=== PATIENT | female | born 1955 | race Caucasian/White ===

== ENCOUNTER 2020-07-16 08:50 | Outpatient (CLI) | payer OTHER, SELFPAY ==
--- NOTE | ~2020-07-16 | DEXA_ITS ---
Bone Density Report Name: Rose Nolan Age: 64 Sex: Female Ethnicity: White Date of : 1955 Indication: osteopenia; monitoring treatment; height loss; Referring Provider: Tri Osei Study: Bone densitometry was performed. Exam Date: July 16, 2020 Accession number: [id number] Bone Density: Region BMD T-score Z-score Classification AP Spine (L1-L4) 0.826 -2.0 -0.3 Osteopenia Femoral Neck (Left) 0.616 -2.1 -0.6 Osteopenia Total Hip (Left) 0.750 -1.6 -0.4 Osteopenia Total Hip Bilateral Avg 0.769 -1.5 -0.3 Osteopenia Femoral Neck (Right) 0.655 -1.7 -0.3 Osteopenia Total Hip (Right) 0.787 -1.3 -0.1 Osteopenia World Health Organization criteria for BMD impression classify patients as: Normal (T-score at or above -1.0), Osteopenia (T-score between -1.0 and -2.5), or Osteoporosis (T-score at or below -2.5). 10-year Fracture Risk: FRAX not reported because: Treated for osteoporosis Previous Exams: Region Exam Age BMD T-score BMD Change BMD Change Date g/cm2 vs Baseline vs Previous AP Spine(L1-L4) 07/16/2020 64 0.826 -2.0 0.003(0.3%)# -0.049(-5.6%)* 08/02/2015 59 0.875 -1.6 0.052(6.3%)# -0.027(-3.0%)# 06/11/2010 54 0.902 -1.3 0.079(9.6%)* 0.079(9.6%)* 04/04/2005 49 0.823 -2.0 Total Hip(Left) 07/16/2020 64 0.750 -1.6 0.038(5.3%)# -0.077(-9.3%)* 08/02/2015 59 0.827 -0.9 0.115(16.2%)# 0.064(8.4%)# 06/11/2010 54 0.763 -1.5 0.051(7.1%)* 0.051(7.1%)* 04/04/2005 49 0.712 -1.9 Total Hip(Right) 07/16/2020 64 0.787 -1.3 0.006(0.8%)# -0.085(-9.7%)* 08/02/2015 59 0.872 -0.6 0.091(11.7%)# 0.028(3.4%)# 06/11/2010 54 0.843 -0.8 0.063(8.0%)* 0.063(8.0%)* 04/04/2005 49 0.781 -1.3 *Denotes significance at 95% confidence level, LSC for AP Spine = 0.022 g/cm2, LSC for Total Hip = 0.027 g/cm2 Clinical Information Provided by Patient: Is being treated for osteoporosis Has used the following medications: Fosamax (i.e. alendronate), Vitamin D, Calcium Patient maximum height was 63.5 Menopause Age: 44 Onset of menses at age 13 Number of children 2 Impression: The patient has low bone mass, based on the Left Femoral Neck T-score. The BMD for the AP Spine(L1-L4) decreased, changing by -5.6% since the last DXA exam. The BMD for the Total Hip(Left) decreased, changing by -9.3% since the last DXA exam. The BMD for the Total Hip(Right) decreased, changing by -9.7% since the last DXA exam
--- NOTE | ~2020-07-16 | MM_ITS ---
EXAMINATION: MM screening [facility] BI w sulma HISTORY: Screening TECHNIQUE: Craniocaudal and mediolateral oblique 3-D tomosynthesis images were obtained and synthetic 2-D images were generated. CAD analysis was submitted and interpreted. COMPARISON: Comparison to multiple prior studies sequentially, with oldest reviewed study dated 12/15. BREAST PARENCHYMAL COMPOSITION: The breasts are heterogeneously dense, which may obscure small masses . FINDINGS: There is no evidence of suspicious mass, calcification, or architectural distortion to sugg est malignancy in either breast. There has been no suspicious interval change. IMPRESSION: 1. No mammographic evidence of malignancy. 2. Recommend routine screening mammography in one year. BI-RADS Category 1: Negative Reviewed, dictated and finalized at location A.
== END 2020-07-16 08:51 | disposition home or self-care (01) ==
LOC: ANHIMG 08:51
PROVIDERS: PCP Family Medicine; Visit Provider Family Medicine
DX: Z12.31 Encounter for screening mammogram for malignant neoplasm of breast (principal); M85.88 Other specified disorders of bone density and structure, other site; M85.852 Other specified disorders of bone density and structure, left thigh; M85.851 Other specified disorders of bone density and structure, right thigh
CPT/HCPCS: 77063; 77067; 77080

== ENCOUNTER 2021-05-03 10:53 | Outpatient (CLI) | payer MEDICARE, SELFPAY ==
--- NOTE | ~2021-05-03 | XR_ITS ---
XR hip RT min 2V 05/03/2021 11:09 Indication: Right hip pain Procedure: 2 views right hip Comparison: No prior studies for comparison. Findings: No fracture, subluxation or dislocation. There is anatomic alignment. Surrounding osseous s tructures and soft tissues are unremarkable. Impression: 1: No significant bone or joint abnormality. Reviewed, dictated and finalized at location A. Impression: 1: No significant bone or joint abnormality.
== END 2021-05-03 10:54 | disposition home or self-care (01) ==
PROVIDERS: PCP Family Medicine; Visit Provider Family Medicine
DX: M25.551 Pain in right hip (principal)
CPT/HCPCS: 73502

== ENCOUNTER → 2021-11-12 09:29 | Outpatient (CLI) | payer MEDICARE, SELFPAY ==
[2021-11-13 13:33] LABS: SARS-CoV-2 RNA PCR Negative
== END ==
PROVIDERS: PCP Family Medicine; Visit Provider Physician Assistant
DX: J02.9 Acute pharyngitis, unspecified (principal); R09.81 Nasal congestion; R53.83 Other fatigue; Z20.822 Contact with and (suspected) exposure to COVID-19
CPT/HCPCS: C9803; U0003; U0005

== ENCOUNTER 2022-04-09 09:01 | Outpatient (CLI) | payer MEDICARE, SELFPAY ==
--- NOTE | ~2022-04-09 | MM_ITS ---
EXAMINATION: MM screening [facility] BI w sulma HISTORY: Screening mammogram TECHNIQUE: Craniocaudal and mediolateral oblique 3-D tomosynthesis images were obtained and synthetic 2-D images were generated. CAD analysis was submitted and interpreted. COMPARISON: 07/16/2020, 10/05/2018, 03/12/2017 bilateral screening mammogram examinations BREAST PARENCHYMAL COMPOSITION: The breasts are heterogeneously dense, which may obscure small masses . FINDINGS: Bilateral mid to upper outer mammographic asymmetry is noted. Bilateral diagnostic mammogra phy and breast ultrasound examination are recommended. IMPRESSION: 1. Bilateral mammographic asymmetry 2. Bilateral diagnostic mammography and breast ultrasound examination are recommended BI-RADS Category 0: Incomplete: Needs additional imaging evaluation. Reviewed, dictated and finalized at location A. IMPRESSION: 1. Bilateral mammographic asymmetry 2. Bilateral diagnostic mammography and breast ultrasound examination are recom mended BI-RADS Category 0: Incomplete: Needs additional imaging evaluation.
== END 2022-04-09 09:02 | disposition home or self-care (01) ==
LOC: ANHIMG 09:04
PROVIDERS: PCP Family Medicine; Visit Provider Physician Assistant
DX: Z12.31 Encounter for screening mammogram for malignant neoplasm of breast (principal); R92.8 Other abnormal and inconclusive findings on diagnostic imaging of breast
CPT/HCPCS: 77063; 77067

== ENCOUNTER 2022-04-11 12:21 | Outpatient (CLI) | payer MEDICARE, SELFPAY ==
--- NOTE | ~2022-04-11 | MMUS_ITS ---
EXAMINATION: MM diagnostic iman BI w sulma, US breast BI limited HISTORY: Bilateral mid to upper outer mammographic asymmetry noted in both breasts on 04/09/2022 [facility]ogram TECHNIQUE: Additional 3-D tomosynthesis images of both breasts were performed and synthetic 2-D image s were generated. CAD analysis was submitted and interpreted. High resolution bilateral upper outer a nd lower outer quadrant breast ultrasound was performed. COMPARISON: 04/09/2022, 07/16/2020, 10/13/2018 bilateral screening mammogram examinations BREAST PARENCHYMAL COMPOSITION: The breasts are heterogeneously dense, which may obscure small masses . FINDINGS: MAMMOGRAPHIC FINDINGS: No suspicious mass or architectural distortion, malignant calcification, skin thickening or retractio n or significant new or developing density is detected. ULTRASOUND: No suspicious mass or shadowing, cyst or other sonographic significant finding is noted in the outer half of either breast. IMPRESSION: 1. No mammographic evidence of malignancy 2. Routine mammographic screening is recommended. BI-RADS Category 1: Negative Reviewed, dictated and finalized at location A. IMPRESSION: 1. No mammographic evidence of malignancy 2. Routine mammographic screening is recommended. BI-RADS Category 1: Negative
== END 2022-04-11 12:22 | disposition home or self-care (01) ==
PROVIDERS: PCP Family Medicine; Visit Provider Physician Assistant
DX: R92.8 Other abnormal and inconclusive findings on diagnostic imaging of breast (principal)
CPT/HCPCS: 76642; 77062; 77066; G0279

== ENCOUNTER 2022-09-10 16:18 | Outpatient (CLI) | payer MEDICARE, SELFPAY ==
--- NOTE | ~2022-09-10 | DEXA_ITS ---
Bone Density Report Name: TI LANCE Age: 66 Sex: Female Ethnicity: White Date of : 1955 Indication: osteopenia; parental hip fracture; postmenopausal Referring Provider: RUBY MILLER Study: Bone densitometry was performed. Exam Date: September 10, 2022 Accession number: [id number] Bone Density: Region BMD T-score Z-score Classification AP Spine(L1-L4) 0.806 -2.2 -0.3 Osteopenia Femoral Neck (Left) 0.646 -1.8 -0.2 Osteopenia Total Hip (Left) 0.765 -1.5 -0.1 Osteopenia Femoral Neck (Right) 0.667 -1.6 0.0 Osteopenia Total Hip (Right) 0.775 -1.4 0.0 Osteopenia Total Hip Mean 0.770 -1.5 -0.1 Osteopenia World Health Organization criteria for BMD impression classify patients as: Normal (T-score at or above -1.0), Osteopenia (T-score between -1.0 and -2.5), or Osteoporosis (T-score at or below -2.5). 10-year Fracture Risk(1): Major Osteoporotic Fracture 18% Hip Fracture 2.1% Reported Risk Factors: [place] (), Neck BMD=0.646, BMI=26.4, parental fracture (1) FRAX(R) Version 3.08. Fracture probability calculated for an untreated patient. Fracture probability may be lower if the patient has received treatment. Previous Exams: Region Exam Age BMD T-score BMD Change BMD Change Date g/cm2 vs Baseline vs Previous AP Spine (L1-L4) 09/10/2022 66 0.806 -2.2 -0.069 (-7.9%) -0.020 (-2.4%) 07/16/2020 64 0.826 -2.0 -0.049 (-5.6%) -0.049 (-5.6%) 08/02/2015 59 0.875 -1.6 Total Hip(Left) 09/10/2022 66 0.765 -1.5 -0.062 (-7.5%) 0.015 (1.9%) 07/16/2020 64 0.750 -1.6 -0.077 (-9.3%) -0.077 (-9.3%) 08/02/2015 59 0.827 -0.9 Total Hip(Right) 09/10/2022 66 0.775 -1.4 -0.097 (-11.1% -0.012 (-1.5%) 07/16/2020 64 0.787 -1.3 -0.085 (-9.7%) -0.085 (-9.7%) 08/02/2015 59 0.872 -0.6 *Denotes significance at 95% confidence level, LSC for AP Spine = 0.022 g/cm2, LSC for Total Hip = 0.027 g/cm2 Clinical Information Provided by Patient: Parent has had a hip fracture Has used the following medications: Vitamin D, Calcium Patient maximum height was 63 Menopause Age: 44 Onset of menses at age 13 Number of children 2 Impression: The patient has low bone mass, based on the Total Spine T-score. The patient has an estimated ten-year risk of hip fracture of 2.1% and an estimated ten-year risk of major fracture of 18%, based on the WHO FRAX algorithm. The patient has risk factors, including: p
== END 2022-09-10 16:19 | disposition home or self-care (01) ==
PROVIDERS: PCP Family Medicine; Visit Provider Physician Assistant
DX: Z78.0 Asymptomatic menopausal state (principal); M85.88 Other specified disorders of bone density and structure, other site; M85.852 Other specified disorders of bone density and structure, left thigh; M85.851 Other specified disorders of bone density and structure, right thigh
CPT/HCPCS: 77080

== ENCOUNTER 2023-03-23 13:37 | Outpatient (CLI) | payer MEDICARE, SELFPAY ==
--- NOTE | ~2023-03-23 | XR_ITS ---
EXAM: XR hand LT min 3V DATE: 03/23/2023 14:04 HISTORY: PAIN AND BUMP TO PROX 4TH METACARPAL AFTER FALL 1 MONTH AGO . COMPARISON: None available. FINDINGS: Decreased mineralization. Acute versus subacute comminuted, mildly displaced fracture of t he proximal aspect of the fourth metacarpal. Oblique lucency seen at the mid/distal fifth metacarpal shaft, seen only in one view. No other fracture or dislocation. No lytic or blastic lesion. Mild dege nerative changes in the interphalangeal joints of the fingers as well as the triscaphe joint. Moderat e degenerative change in the trapeziometacarpal joint and the interphalangeal joint of the thumb, whe re there is a osseous fragment that may represent an old fracture fragment. No erosion or periosteal change. Soft tissues within normal limits. IMPRESSION: Acute versus subacute mildly displaced fracture of the proximal aspect of the fourth meta carpal. Possible nondisplaced fracture of the mid/distal fifth metacarpal shaft, correlate with point tenderness. Mild-moderate polyarticular osteoarthritis. Reviewed, dictated and finalized at location K. IMPRESSION: Acute versus subacute mildly displaced fracture of the proximal asp ect of the fourth metacarpal. Possible nondisplaced fracture of the mid/distal fifth metacarpal shaft, correlate with point tenderness. Mild-moderate polyarti cular osteoarthritis.
== END 2023-03-23 13:38 | disposition home or self-care (01) ==
PROVIDERS: PCP Family Medicine; Visit Provider Physician Assistant
DX: S62.395A Other fracture of fourth metacarpal bone, left hand, initial encounter for closed fracture (principal); X58.XXXA Exposure to other specified factors, initial encounter
CPT/HCPCS: 73130

== ENCOUNTER 2023-06-30 09:49 | Outpatient (CLI) | payer MEDICARE, SELFPAY ==
--- NOTE | ~2023-06-30 | MM_ITS ---
EXAMINATION: MM screening [facility] BI w sulma HISTORY: Screening TECHNIQUE: Craniocaudal and mediolateral oblique 3-D tomosynthesis images were obtained and synthetic 2-D images were generated. CAD analysis was submitted and interpreted. COMPARISON: Comparison to multiple prior studies sequentially, with oldest reviewed study dated 01/10 BREAST PARENCHYMAL COMPOSITION: The breasts are heterogeneously dense, which may obscure small masses . FINDINGS: There is no evidence of suspicious mass, calcification, or architectural distortion to sugg est malignancy in either breast. There has been no suspicious interval change. IMPRESSION: 1. No mammographic evidence of malignancy. 2. Recommend routine screening mammography in one year. BI-RADS Category 1: Negative Reviewed, dictated and finalized at location A.
== END 2023-06-30 09:50 | disposition home or self-care (01) ==
PROVIDERS: PCP Family Medicine; Visit Provider Physician Assistant
DX: Z12.31 Encounter for screening mammogram for malignant neoplasm of breast (principal)
CPT/HCPCS: 77063; 77067

== ENCOUNTER 2023-07-30 06:27 | Day surgery (SDC) | payer MEDICARE, SELFPAY ==
[2023-07-23 11:49] VITALS: BMI 23.9
--- NOTE | 2023-07-30 07:34 | WPDANESEPPF ---
Anes - Initial Pre Proc Eval Procedure: Operation Date: 07/30/23 09:30 Proposed Procedures p Diagnostic Colonoscopy - Tello Le MD Date/Time: 07/30/23 07:34 Surgeon: Tello Le MD Pre Op Diagnosis: Other Fecal Abnormalities Patient Data Age: 67 Gender: F Height: 1.6 m Weight: 61.4 kg Allergies Allergy/AdvReac Type Severity Reaction Status Date / Time No Known Allergies Allergy Verified 07/30/23 08:20 Home Medications Medication Instructions Recorded Confirmed Type calcium carbonate 600 mg-vitamin 1 tablet PO DAILY 12/19/20 07/30/23 History D3 20 mcg (800 unit) tablet (Caltrate with Vitamin D3) naproxen 500 mg tablet 500 mg PO BID PRN pain #60 tabs 02/10/22 07/30/23 Rx uvylgmsk-cmqtkzmju-ioaqjovw 3.5 1 drp EACH EYE Q6H #5 mL 04/17/22 07/30/23 Rx mg/mL-10,000 unit/mL-0.1% eye drops clobetasol 0.05 % topical cream 1 applic topical BID #15 grams 06/23/22 07/30/23 Rx estradiol 10 mcg vaginal tablet 10 mcg vaginal .COMPLEX #18 tabs 03/19/23 07/30/23 Rx (Yuvafem) atenolol 25 mg tablet 25 mg PO DAILY #90 tabs 05/11/23 07/30/23 Rx simvastatin 5 mg tablet 5 mg PO DAILY #90 tabs 06/23/23 07/30/23 Rx Patient hx anesthesia problems: none Family hx anesthesia problems: none Results Review: All pre-operative results and documents have been reviewed as part of the pre-operative evaluation. [facility] Past Medical History Medical History (Updated 07/30/23 @ 07:34 by Parrish Pat DO) Essential (primary) hypertension Hepatitis C antibody test negative (12/28/16) Mixed hyperlipidemia Surgical History Surgical History H/O section 1981 1988 H/O hemorrhoidectomy (~1986) Family History Family History Father Hypertension Family history of elevated blood lipids Acute myocardial infarction Family history of coronary artery disease Mother Hypertension Family history of elevated blood lipids Acute myocardial infarction Cerebrovascular accident Family history of coronary artery disease Sibling Family history of elevated blood lipids Social History Social History Smoking status: Never smoker Alcohol intake: current Drinks per week: 4 Alcohol use details: socially Substance use: never Substance use type: does not use Lack of Transportation: No Lack of Food: Never True Current Housing: I Have Housing Concerned About Future Housing: No Difficulty Paying Gas/Electric Bills: No Difficulty Paying for Meds: No Currently Unemployed: No Education: Bachelor's Degree Difficulty w/ Childcare or Family Care: No Living arrangements: with friend(s) Additional living arrangements comments: Boyfriend Occupation/Education: retired Gender identity (if verbalized by the patient): Female Sexual Orientation (if Verbalized by the Patient): Straight or Heterosexual Spiritual care concerns: No Agree to blood products: Yes Anes - Eval Final PreProcedure Day of Procedure 07/30/23 07:34 Patient weight: normal Heart: regular rate and rhythm Lungs: clear to auscultation and normal air movement Airway: Mallampati scale class II Neurological: alert and oriented Last oral intake: >/= 8 hours ASA classification: II Emergent: no Anesthetic plan: proceed Anesthesia type and monitoring: general GIVS and standard monitoring Results Review: All pre-operative results and documents have been reviewed as part of the pre-operative evaluation. Informed Consent: The patient's anesthetic plan and its attendant risks and benefits were discussed with the patient/family/POA. Questions were solicited and answers provided to the satisfaction of the patient/family/POA.
[2023-07-30 08:17] VITALS: BP 134/85; PULSE 52; RESP 14; TEMP 36.8; O2SAT 98
[2023-07-30] MEDS: LACTATED RINGERS 1,000 ML 150 ML IV CONT (08:28)
--- NOTE | 2023-07-30 08:50 | PM.HPGS ---
History of Present Illness History of Present Illness Consent: Risks, benefits, and alternatives have been discussed and questions answered. Patient agrees to proceed with procedure. Chief complaint: Other Fecal Abnormalities Narrative: Rose Nloan is a 67 year old female with last colonoscopy in 2006, had + cologuard Review of Systems Constitutional: Constitutional: Denies headache(s) and Denies weakness Eyes: Eyes: Denies blurry vision ENT: Reports Normal hearing present, Denies headache(s) and Denies neck pain Cardiovascular: Cardiovascular: Denies chest pain and Denies dyspnea Respiratory: Respiratory: Denies dyspnea Gastrointestinal: Gastrointestinal: Reports no additional gastrointestinal complaints Genitourinary: Genitourinary: Denies dysuria Musculoskeletal: Musculoskeletal: Denies neck pain Integumentary/Breasts: Skin/Breast: Denies dry skin Neurologic: Reports Normal hearing present, Denies headache(s) and Denies weakness Psychiatric: Psychiatric: Denies anxiety Endocrine: Endocrine: Denies change in body appearance Hematologic/Lymphatic: Hematologic/Lymphatic: Denies easy bleeding Allergic/Immunologic: Allergic/Immunologic: Denies urticaria PMFSH Past Medical History Medical History (Updated 07/30/23 @ 07:34 by Parrish Pat DO) Essential (primary) hypertension Hepatitis C antibody test negative (12/28/16) Mixed hyperlipidemia Surgical History Surgical History H/O section 1981 1988 H/O hemorrhoidectomy (~1986) Family History Family History Father Hypertension Family history of elevated blood lipids Acute myocardial infarction Family history of coronary artery disease Mother Hypertension Family history of elevated blood lipids Acute myocardial infarction Cerebrovascular accident Family history of coronary artery disease Sibling Family history of elevated blood lipids Social History Social History Smoking status: Never smoker Alcohol intake: current Drinks per week: 4 Alcohol use details: socially Substance use: never Substance use type: does not use Lack of Transportation: No Lack of Food: Never True Current Housing: I Have Housing Concerned About Future Housing: No Difficulty Paying Gas/Electric Bills: No Difficulty Paying for Meds: No Currently Unemployed: No Education: Bachelor's Degree Difficulty w/ Childcare or Family Care: No Living arrangements: with friend(s) Additional living arrangements comments: Boyfriend Occupation/Education: retired Gender identity (if verbalized by the patient): Female Sexual Orientation (if Verbalized by the Patient): Straight or Heterosexual Spiritual care concerns: No Agree to blood products: Yes Meds Home Medications and Allergies Home Medications Medication Instructions Recorded Confirmed Type calcium carbonate 600 mg-vitamin 1 tablet PO DAILY 12/19/20 07/30/23 History D3 20 mcg (800 unit) tablet (Caltrate with Vitamin D3) naproxen 500 mg tablet 500 mg PO BID PRN pain #60 tabs 02/10/22 07/30/23 Rx mnuuojpy-wknjxfvmt-hfkikrty 3.5 1 drp EACH EYE Q6H #5 mL 04/17/22 07/30/23 Rx mg/mL-10,000 unit/mL-0.1% eye drops clobetasol 0.05 % topical cream 1 applic topical BID #15 grams 06/23/22 07/30/23 Rx estradiol 10 mcg vaginal tablet 10 mcg vaginal .COMPLEX #18 tabs 03/19/23 07/30/23 Rx (Yuvafem) atenolol 25 mg tablet 25 mg PO DAILY #90 tabs 05/11/23 07/30/23 Rx simvastatin 5 mg tablet 5 mg PO DAILY #90 tabs 06/23/23 07/30/23 Rx Allergies Allergy/AdvReac Type Severity Reaction Status Date / Time No Known Allergies Allergy Verified 07/30/23 08:20 Vital Signs Vital Signs - 24 hr 07/30/23 08:17 Temperature 98.2 F Pulse Rate 52 L Respiratory Rate 14 Blood Pressure 134/8
[2023-07-30 09:23] VITALS: BP 100/61; PULSE 52; RESP 14; TEMP 36.2; O2SAT 96
[2023-07-30 09:33] VITALS: BP 100/77; PULSE 52; RESP 14; O2SAT 99
[2023-07-30 09:44] VITALS: BP 125/74; PULSE 50; RESP 16; O2SAT 98
== END 2023-07-30 09:50 | disposition home or self-care (01) ==
PROVIDERS: PCP Family Medicine; Visit Provider Internal Medicine Gastroenterology
PROC: 0DJD8ZZ Inspection of Lower Intestinal Tract, Via Natural or Artificial Opening Endoscopic (ICD-10-PCS; CPT 45378; principal; 2023-07-30 09:30)
DX: R19.5 Other fecal abnormalities (principal); D12.2 Benign neoplasm of ascending colon; D12.3 Benign neoplasm of transverse colon; K64.8 Other hemorrhoids
CPT/HCPCS: 45385; 45380

== ENCOUNTER 2023-07-30 09:00 | Outpatient (NON) | payer MEDICARE, SELFPAY | END 2023-07-30 09:01 | disposition home or self-care (01) | PROVIDERS: PCP Family Medicine; Visit Provider Internal Medicine Gastroenterology | DX: Z12.11 Encounter for screening for malignant neoplasm of colon (principal) | CPT/HCPCS: 88305 ==

== ENCOUNTER 2024-07-11 07:47 | Outpatient (CLI) | payer MEDICARE, SELFPAY ==
--- NOTE | ~2024-07-11 | MM_ITS ---
EXAMINATION: MM screening [facility] BI w sulma HISTORY: Screening TECHNIQUE: Craniocaudal and mediolateral oblique 3-D tomosynthesis images were obtained and synthetic 2-D images were generated. CAD analysis was submitted and interpreted. COMPARISON: Comparison to multiple prior studies sequentially, with oldest reviewed study dated 03/12. BREAST PARENCHYMAL COMPOSITION: Dense: The breasts are heterogeneously dense, which may obscure small masses FINDINGS: The left breast is stable without evidence for malignancy. There are asymmetries in the upp er outer quadrant of the right breast posteriorly. IMPRESSION: 1. Right breast asymmetries. 2. Additional mammographic views and possible breast ultrasound are recommended. BI-RADS Category 0: Incomplete: Needs additional imaging evaluation. Reviewed, dictated and finalized at location B. IMPRESSION: 1. Right breast asymmetries. 2. Additional mammographic views and possible breast ultrasound are recommended . BI-RADS Category 0: Incomplete: Needs additional imaging evaluation.
== END 2024-07-11 07:48 | disposition home or self-care (01) ==
LOC: ANHIMG 07:48
PROVIDERS: PCP Family Medicine; Visit Provider Family Medicine
DX: Z12.31 Encounter for screening mammogram for malignant neoplasm of breast (principal); R92.8 Other abnormal and inconclusive findings on diagnostic imaging of breast
CPT/HCPCS: 77063; 77067

== ENCOUNTER 2024-07-28 12:51 | Outpatient (CLI) | payer MEDICARE, SELFPAY ==
--- NOTE | ~2024-07-28 | MM_ITS ---
EXAMINATION: MM diagnostic iman RT w sulma HISTORY: Right breast asymmetry TECHNIQUE: Additional 3-D tomosynthesis images of the right breast were performed and synthetic 2-D i mages were generated. CAD analysis was submitted and interpreted. COMPARISON: 07/11/2024, 06/30/2023, 04/11/2022, 04/09/2022 BREAST PARENCHYMAL COMPOSITION:Dense: The breasts are heterogeneously dense, which may obscure small masses. FINDINGS: There is effacement of the asymmetry with spot compression. No persistent mass lesion or di stortion seen. No suspicious lytic or calcification. IMPRESSION: No mammographic evidence for malignancy. BI-RADS Category 1: Negative Reviewed, dictated and finalized at location .
== END 2024-07-28 12:52 | disposition home or self-care (01) ==
PROVIDERS: PCP Family Medicine; Visit Provider Family Medicine
DX: N63.11 Unspecified lump in the right breast, upper outer quadrant (principal)
CPT/HCPCS: 77061; 77065; G0279

== ENCOUNTER 2025-05-10 08:42 | Outpatient (CLI) | payer MEDICARE, SELFPAY ==
--- NOTE | ~2025-05-10 | DEXA_ITS ---
Bone Density Report Name: TI LANCE Age: 69 Sex: Female Ethnicity: White Date of : 1955 Indication: osteopenia; parental hip fracture; Referring Provider: MECHE PERALES Study: Bone densitometry was performed. Exam Date: May 10, 2025 Accession number: [id number] Bone Density: Region BMD T-score Z-score Classification AP Spine(L1-L4) 0.803 -2.2 -0.1 Osteopenia Femoral Neck (Left) 0.632 -2.0 -0.2 Osteopenia Total Hip (Left) 0.739 -1.7 -0.2 Osteopenia Femoral Neck (Right) 0.640 -1.9 -0.1 Osteopenia Total Hip (Right) 0.742 -1.6 -0.2 Osteopenia Total Hip Mean 0.741 -1.7 -0.2 Osteopenia World Health Organization criteria for BMD impression classify patients as: Normal (T-score at or above -1.0), Osteopenia (T-score between -1.0 and -2.5), or Osteoporosis (T-score at or below -2.5). 10-year Fracture Risk(1): Major Osteoporotic Fracture 18% Hip Fracture 4.1% Reported Risk Factors: [place] (), Neck BMD=0.632, BMI=26.4, parental fracture (1) FRAX(R) Version 3.08. Fracture probability calculated for an untreated patient. Fracture probability may be lower if the patient has received treatment. Previous Exams: Region Exam Age BMD T-score BMD Change BMD Change Date g/cm2 vs Baseline vs Previous AP Spine (L1-L4) 05/10/2025 69 0.803 -2.2 -0.073 (-8.3%) -0.003 (-0.4%) 09/10/2022 66 0.806 -2.2 -0.069 (-7.9%) -0.020 (-2.4%) 07/16/2020 64 0.826 -2.0 -0.049 (-5.6%) -0.049 (-5.6%) 08/02/2015 59 0.875 -1.6 Total Hip(Left) 05/10/2025 69 0.739 -1.7 -0.088 (-10.6% -0.025 (-3.3%) 09/10/2022 66 0.765 -1.5 -0.062 (-7.5%) 0.015 (1.9%) 07/16/2020 64 0.750 -1.6 -0.077 (-9.3%) -0.077 (-9.3%) 08/02/2015 59 0.827 -0.9 Total Hip(Right) 05/10/2025 69 0.742 -1.6 -0.129 (-14.9% -0.033 (-4.2%) 09/10/2022 66 0.775 -1.4 -0.097 (-11.1% -0.012 (-1.5%) 07/16/2020 64 0.787 -1.3 -0.085 (-9.7%) -0.085 (-9.7%) 08/02/2015 59 0.872 -0.6 *Denotes significance at 95% confidence level, LSC for AP Spine = 0.022 g/cm2, LSC for Total Hip = 0.027 g/cm2 Clinical Information Provided by Patient: Parent has had a hip fracture Has used the following medications: Vitamin D, Calcium Patient maximum height was 63 Menopause Age: 44 Onset of menses at age 13 Number of children 2 Impression: The patient has low bone mass, based on the Total Spine T-score. The patient has an estimated ten-year risk of hip fracture of 4.1% and an estimated ten-year risk of major fracture of 18%, based on the WHO FRAX algorithm. The patient has risk factors, including: parental hip fracture. The BMD for the Total Hip(Right) decreased, changing by -4.2% since the last DXA exam. Discussion: BONE DENSITY IS LOW AT ONE OR MORE SKELETAL SITES. THE PATIENT'S BMD AND CLINICAL RISK FACTORS CONTRIBUTE TO THIS PATIENT'S INCREASED RISK OF FRACTURE. This patient's lowest T-score is low at one or more skeletal sites. It meets the World Health Organization's (WHO) criteria for ?low bone mass? (T-score between -1.0 and -2.5). The patient's 10-year risk of hip fracture as calculated by FRAX exceeds the threshold where pharmacological therapy is recommended by the National Osteoporosis Foundation (NOF). However, all treatment decisions require clinical judgment and consideration of individual patient factors, including patient preferences, comorbidities, previous drug use, risk factors not captured in the FRAX model (e.g., frailty, falls, vitamin D deficiency, increased bone turnover, interval significant decline in bone density) and possible under or overestimation of fracture risk by FRAX. The patient should follow a healthful lifestyle (good nutrition with adequate calcium and vitamin D, and appropriate weight-bearing exercise). Follow-Up: Consider a repeat BMD and Vertebral Fracture Assessment (VFA) exam in 2 years or sooner if medically necessary, to reassess this patient's status. Reported by: MARITO on 05/10/2025 9:18:00 AM. Reviewed, dictated and finalized at location A.
== END 2025-05-10 08:43 | disposition home or self-care (01) ==
LOC: ANHIMG 08:46
PROVIDERS: PCP Family Medicine; Visit Provider Nurse Practitioner
DX: M85.88 Other specified disorders of bone density and structure, other site (principal); M85.852 Other specified disorders of bone density and structure, left thigh; M85.851 Other specified disorders of bone density and structure, right thigh
CPT/HCPCS: 77080

== ENCOUNTER 2025-07-11 09:15 | Outpatient (CLI) | payer MEDICARE, SELFPAY ==
--- NOTE | ~2025-07-11 | XR_ITS ---
Clinical history:Unspecified fall, initial encounter. EXAM:X-ray reveals bilateral TECHNIQUE:7 images of the ribs were obtained. Comparisons:None available FINDINGS: 7 mm pulmonary nodule in the left upper lung. No rib fracture identified. IMPRESSION: No rib fracture identified. There is a 7 mm pulmonary nodule in the left upper lobe. A chest CT is recommended. Reviewed, dictated and finalized at location Q. IMPRESSION: No rib fracture identified. There is a 7 mm pulmonary nodule in the left upper lobe. A chest CT is recommen ded.
== END 2025-07-11 09:16 | disposition home or self-care (01) ==
LOC: GOSHIMG 09:15
PROVIDERS: PCP Family Medicine; Visit Provider Family Medicine
DX: R07.81 Pleurodynia (principal); R91.1 Solitary pulmonary nodule
CPT/HCPCS: 71110

== ENCOUNTER 2025-07-31 13:40 | Outpatient (CLI) | payer MEDICARE, SELFPAY ==
--- NOTE | ~2025-07-31 | CT_ITS ---
EXAMINATION:CT diagnostic chest wo con DATE: 07/31/2025 14:01 INDICATION: Left upper lobe pulmonary nodule. TECHNIQUE: Computed tomography (CT) of the chest was performed without intravenous contrast. Automated exposure control and iterative reconstruction technique were employed. The dose-length product (DLP) was 57.16 mGy-cm. COMPARISON: Radiographs 07/11/2025 FINDINGS: The lungs demonstrate mild atelectasis. A calcified left upper lobe nodule and calcified left hilar lymph nodes are consistent with old granulomatous disease. No pleural effusion. The heart size is normal. There are coronary artery calcifications. No pericardial effusion. There are gallstones in the gallbladder. There is a 3.8 cm cyst in left kidney. There is moderate thoracic spondylosis. IMPRESSION: 1. Calcified left lung nodule correlating with the prior radiographic finding, consistent with old granulomatous disease. Reviewed, dictated and finalized at location E.
--- OUTSIDE RECORDS SUMMARY | 2025-07-31 16:19 | XMS_ITS | Encounter Summary ---
Author Organization [facility] Address [address] [place] [address] Care Team Providers Care Night Time Nanny Name Role Phone Unavailable Primary Care Provider Unavailabl e Encounter Details Date Type Department Care Team (Late st Contact Info) Description 05/18/2024 Lab Requisition [facility] - DermPath Lab [address] [facility], [facility] [place] [address] Raymond Trivedi MD [facility] DERMATOLOGY [address] [place] [phone] Neoplasm of uncertain behavior of skin Social History Tobacco Use Types Packs/Day Years Used Date Smoking Tobacco: Never Assessed Comments Unknown Sex and Gender Information Value Date Recorded Sex Assigned at Not on file Legal Sex Female 11:55 AM CDT Gender Identity Not on file Sexual Orientation Not on file documented as of this encounter Plan of Treatment Not on file documented as of this encounter Procedures Procedure Name Priority Date/Time Associated Diagnosis Comments DERMATOPATHOLOGY Routine 05/18/2024 12:0 0 AM CDT Neoplasm of uncertain behavior of skin documented in this encounter Results * DERMATOPATHOLOGY (05/18/2024 12:00 AM CDT) Case Report Dermatopathology Report Case: [id number] Authorizing Provider: Raymond Trivedi MD Collected: 05/18/2024 12:00 AM Ordering Location: [facility] Physician [facility] - Received: 05/23/2024 10:11 AM DermPath Lab Pathologist: Jannette Wen MD Specimen: Skin, right forearm 12:08 PM CDT DERMATOPATHOLOGY LABORATORY Final Diagnosis Specimen A. SKIN, right forearm: ACTINIC KERATOSIS (L57.0) EPIDERMAL NECROSIS SUGGESTIVE OF EXCORIATION (L98.499) (see microscopic description and comment) 4 12:08 PM T DERMATOPATHOLOGY LABORATORY at 1208 CDT Clinical History BCC 4 12:08 PM CDT DERMATOPATHOLOGY LABORATORY Gross Description Specimen A: Received is one formalin filled container labeled with the patient's name and designated right forearm. The specimen consists of a shave biopsy measuring 5x2x1 mm. Jar 0. 4 12:08 PM T DERMATOPATHOLOGY LABORATORY Microscopic Description Specimen A. SKIN, right forearm: There is focal parakeratosis. The lower half of the epidermis shows disorderly maturation of keratinocytes with nuclear pleomorphism. The epidermis is focally necrotic and covered with a scale-crust. There is fibrin at the base. Additional deeper sections were obtained and reviewed. COMMENT: Given the superficial nature of the biopsy specimen, a deeper dermal process cannot be excluded. 12:08 PM T DERMATOPATHOLOGY LABORATORY Disclaimer An external and internal positive and negative controls are appropriate for the histochemical, immunohistochemical and immunofluorescence stain(s) in this case (if any), except where stated explicitly. The performance characteristics of the stain(s) cited in this report were developed and its performance characteristic determined by the Dermatopathology Laboratory at [facility], directed by Dr. Laney Jimenez. These tests need not be, and therefore are not, approved by the [place] Food and Drug Administration. The tests are used for clinical purposes. Billing Codes Specimen Charges Stain Charges 28753 1 12:08 PM CDT DERMATOPATHOLOGY LABORATORY Embedded Images 12:08 PM CDT DERMATOPATHOLOGY LABORATORY Pathology/Cytolog y TISSUE SPECIMEN FROM SKIN / Unknown 05/18/2024 05/23/2024 10:11 AM CDT Raymond Trivedi MD LAB - PATHOLOGY/CYTOLOGY SHRUTHI MARTINEZ Final Result DERMATOPATHOLOGY LABORATORY [facility] - Department of Dermatology [address], [address] [phone] documented in this encounter Visit Diagnoses Diagnosis Neoplasm of uncertain behavior of skin documented in this encounter
--- OUTSIDE RECORDS SUMMARY | 2025-07-31 16:19 | XMS_ITS | Clinical Summary ---
Author Organization [facility] Address [address] [place] [address] Care Team Providers Care Jewelry Casting Model Maker Apprentice Name Role Phone Unknown, Notinfile Primary Care Provider Unavail able Allergies No known active allergies Medications Yuvafem 10 mcg tablet 10 MCG VAGINAL ONCE PER WEEK 03/22/2023 Active Active Problems Problem Noted Date Diagnosed Date Closed displaced fracture of shaft of fourth metacarpal bone of left hand 03/30/2023 Left hand pain 03/30/2023 Social History Tobacco Use Types Packs/Day Years Used Date Smoking Tobacco: Never Smokeless Tobacco: Never Tobacco Cessation:Counseling Given: Not Answered Personal Safety Answer Date Recorded Getting School Help Needed Not on file 01/30 Comments Unknown Sex and Gender Information Value Date Recorded Sex Assigned at Not on file Legal Sex Female 3:01 PM CDT Gender Identity Not on file Sexual Orientation Not on file Obstetrics History Plan of Treatment Health Maintenance Due Date Last Done Comments Breast Cancer Screening-Mammogram 1955 Colon Cancer Screening-Colonoscopy 1955 Depression Screening 1955 Fall Risk Assessment 1955 Hepatitis C Screening 1955 Osteoporosis Screening-Bone Density Scan 1955 DTaP/Tdap/Td Vaccine (1 - Tdap) 1966 Hepatitis B Screening 1973 Well Visit 65+ 2020 Covid-19 Vaccine ( - 2024-2 6 season) 2025 08/26/2022, 03/07/2022, 09/14/2021, Additional history exists Influenza Vaccine (#1) 2025 , 08/07/2021, 08/09/2019, Additional history exists Zoster Vaccine Completed 06/18/2022, 04/03/2022 Pneumococcal vaccine 65+ Completed 07/07/2022, 04/16 [address] [place] [id number] [facility] MEDICARE ADVANTAGE [facility] Address: [place] [phone] [place] [address] [facility] Address: [place] [id number] [place] [phone] Care Teams Jewelry Casting Model Maker Apprentice Relationship Specialty Start Date End Date Unknown, Notinfile PCP - General 03/24/23
--- OUTSIDE RECORDS SUMMARY | 2025-07-31 16:19 | XMS_ITS | Clinical Summary ---
Author Organization [facility] Address [address] [facility] [place] [address] Care Team Providers Care Padder Name Role Phone Unavailable Primary Care Provider Unavailabl e Source Comments [facility],non-owned Affiliates and Associated Physician Practices is amultiple site organization consisting of ambulatory clinics and hospital sitesin [place], [place], [place] and [place]. This disclosure is being madepursuant to the Care Everywhere program and may not contain all information available regarding this patient. Last updated 18.[facility] Social History Tobacco Use Types Packs/Day Years Used Date Smoking Tobacco: Never Assessed Comments Unknown Sex and Gender Information Value Date Recorded Sex Assigned at Not on file Legal Sex Female 11:55 AM CDT Gender Identity Not on file Sexual Orientation Not on file Plan of Treatment Health Maintenance Due Date Last Done Comments BONE DENSITY TESTING 1955 COLOGUARD (AGES 45-75) - COL ON CA SCREENING 1955 COLON MONITORING 1955 COLONOSCOPY - COLON CA SCREENING 1955 CT COLONOGRAPHY - COLON CA SCREENING 1955 Colorectal Cancer Screening 1955 FIT - COLON CA SCREENING 1955 FLEX SIG - COLON CA SCREENING 1955 LIPID TESTING 1955 MAMMOGRAM 1955 HEPATITIS C SCREENING 10/07/1973 DTAP/TDAP/TD VACCINES (1 - Tdap) 1974 PNEUMOCOCCAL VACCINE 50+ (1 of 1 - PCV) 2005 ZOSTER VACCINE (1 of 2) 2005 DEPRESSION SCREENING 11/16/2024 MEDICARE AWV CALENDAR YEAR 2024 COVID-19 VACCINE (1 - 2023-2 5 season) 2025 INFLUENZA VACCINE (#1) 2025 Respiratory Syncytial Virus (RSV) Vaccine Pt: or over 60 yrs (1 - 1-dose 75+ series) 2030 HEPATITIS B VACCINE Aged Out No longe r eligible based on patient's age to complete this topic HIB VACCINE Aged Out No longer eligi ble based on patient's age to complete this topic HPV VACCINE Aged Out No longer eligi ble based on patient's age to complete this topic MENINGOCOCCAL (Group B) VACC INE SHARED DECISION-MAKING Aged Out No longer eligibl e based on patient's age to complete this topic MENINGOCOCCAL GROUPS A/C/Y/W VACCINE Aged Out No longer eligible b ased on patient's age to complete [place] [address] U[employer] MANAGED MEDICARE ADV
== END 2025-07-31 13:41 | disposition home or self-care (01) ==
PROVIDERS: PCP Family Medicine; Visit Provider Family Medicine
DX: R91.1 Solitary pulmonary nodule (principal)
CPT/HCPCS: 71250

== ENCOUNTER 2025-08-18 07:36 | Outpatient (CLI) | payer MEDICARE, SELFPAY ==
--- NOTE | ~2025-08-18 | MM_ITS ---
EXAMINATION: MM screening iman BI w sulma HISTORY: Screening TECHNIQUE: Craniocaudal and mediolateral oblique 3-D tomosynthesis images were obtained and synthetic 2-D images were generated. CAD analysis was submitted and interpreted. COMPARISON: Comparison to multiple prior studies sequentially, with oldest reviewed study dated 07/16/2020. BREAST PARENCHYMAL COMPOSITION: Dense: The breasts are heterogeneously dense, which may obscure small masses FINDINGS: There is no evidence of suspicious mass, calcification, or architectural distortion to suggest malignancy in either breast. There has been no suspicious interval change. IMPRESSION: 1. No mammographic evidence of malignancy. 2. Recommend routine screening mammography in one year. BI-RADS Category 1: Negative Reviewed, dictated and finalized at location B.
--- OUTSIDE RECORDS SUMMARY | 2025-08-18 07:41 | XMS_ITS | Clinical Summary ---
Author Organization [facility] Address [address] [place] [address] Care Team Providers Care Hospice Patient Care Secretary Name Role Phone Unknown, Notinfile Primary Care [...] vaccine 65+ Completed 07/07/2022, 04/16 Insurance [address] [place] [id number] [facility] MEDICARE ADVANTAGE [facility] MEDIC[facility] Address: [place] [id number] [place] [address] [address] [facility] [facility] [address] [place] [id number] [employer] MEDICARE ADVANTAGE [facility] MEDICARE Address: [place] [id number] [place] [phone] Care Teams Hospice Patient Care Secretary Relationship Specialty Start Date End Date Unknown, Notinfile PCP - General 03/24/23
--- OUTSIDE RECORDS SUMMARY | 2025-08-18 07:41 | XMS_ITS | Clinical Summary ---
Author Organization [facility] Address [address] [facility] [place] [address] Care Team Providers Care Software Lead Name Role Phone Unavailable Primary Care Provider Unavailabl e Source Comments [facility],non-owned Affiliates and Associated Physician Practices is amultiple site organization consisting of ambulatory clinics and hospital sitesin [place], [place], [place] and [place]. This disclosure is being madepursuant to the Care Everywhere program and may not contain all information available regarding this patient. Last updated 18.[facility] Social History Tobacco Use Types Packs/Day Years [...] patient's age to complete [place] [address] UHC MANAGED MEDICARE ADV
--- OUTSIDE RECORDS SUMMARY | 2025-08-18 07:41 | XMS_ITS | Encounter Summary ---
Author Organization [facility] Address [address] [place] [address] Care Team Providers Care Informatica Developer Name Role Phone Unavailable Primary Care Provider Unavailabl e Encounter Details Date Type Department Care Team (Late st Contact Info) Description 05/18/2024 Lab Requisition [facility] - DermPath Lab [address], [facility] [place] [address] Raymond Trivedi MD [facility] DERMATOLOGY [address] [place] [phone] Neoplasm of uncertain behavior of skin [...] AM CDT) Case Report Dermatopathology Report Case: [id number] Authorizing Provider: Raymond Trivedi MD Collected: 05/18/2024 12:00 AM Ordering Location: [facility] Physician [facility] - Received: 05/23/2024 10:11 AM DermPath Lab [...] characteristic determined by the Dermatopathology Laboratory at [facility], directed by Dr. Laney Jimenez. These tests need not be, and therefore are not, approved by the [place] Food and Drug Administration. The tests are used for clinical purposes. Billing Codes Specimen Charges Stain Charges 43103 1 12:08 PM CDT DERMATOPATHOLOGY LABORATORY Embedded Images 12:08 PM CDT DERMATOPATHOLOGY LABORATORY Pathology/Cytolog y TISSUE SPECIMEN FROM SKIN / Unknown 05/18/2024 05/23/2024 10:11 AM CDT Raymond Trivedi MD LAB - PATHOLOGY/CYTOLOGY SHRUTHI MARTINEZ Final Result DERMATOPATHOLOGY LABORATORY [facility] - Department of Dermatology [address] [phone] documented in this encounter Visit Diagnoses Diagnosis Neoplasm of uncertain behavior of skin documented in this encounter
== END 2025-08-18 07:37 | disposition home or self-care (01) ==
LOC: ANHFOHIMG 07:39
PROVIDERS: PCP Family Medicine; Visit Provider Family Medicine
DX: Z12.31 Encounter for screening mammogram for malignant neoplasm of breast (principal)
CPT/HCPCS: 77063; 77067

== ENCOUNTER 2025-08-31 10:54 | Outpatient (CLI) | payer MEDICARE, SELFPAY ==
--- NOTE | ~2025-08-31 | XR_ITS ---
EXAMINATION: XR hip RT 2V w AP pelvis, 08/31/2025 11:04 CDT HISTORY: Pain in right hip x 1 month, running injury, no surg COMPARISON: No comparisons available. Findings: No acute fracture or malalignment. No significant degenerative changes. Soft tissues unremarkable. Impression: No acute fracture or malalignment. Reviewed, dictated and finalized at location P. Impression: No acute fracture or malalignment.
--- NOTE | ~2025-08-31 | XR_ITS ---
XR lumbar spine min 4V Indication: Pain in right hip x 1 month, running injury, no surg Comparison: None Findings: The vertebral heights are intact. No fracture or subluxation. The disc heights are intact. Soft tissues unremarkable Impression: No acute abnormality. Reviewed, dictated and finalized at location P. Impression: No acute abnormality.
== END 2025-08-31 10:55 | disposition home or self-care (01) ==
LOC: GOSHIMG 10:55
PROVIDERS: PCP Family Medicine; Visit Provider Nurse Practitioner Family
DX: M25.551 Pain in right hip (principal); M79.18 Myalgia, other site; M54.31 Sciatica, right side
CPT/HCPCS: 72110; 73502

== ENCOUNTER 2025-11-10 07:26 | Outpatient (CLI) | payer MEDICARE, SELFPAY ==
--- NOTE | ~2025-11-10 | MR_ITS ---
EXAMINATION: MR lumbar spine wo con DATE: 11/10/2025 08:02 INDICATION: Sciatica, right-sided. TECHNIQUE: Magnetic resonance imaging (MRI) of the lumbar spine was performed without intravenous contrast. COMPARISON: Lumbar spine radiographs 08/31/2025 FINDINGS: There is 4 degrees levocurvature of lumbar spine. Vertebral body heights are normal. Intervertebral disc heights are normal. The distal spinal cord signal intensity is normal. The conus medullaris is at L1. There are cysts in left kidney measuring up to 3.7 cm. The following disc levels are s pecifically discussed: L1-L2: The disc does not extend beyond the endplate margin. There is mild bilateral facet joint osteoarthritis. There is no neural foraminal stenosis. There is no central canal stenosis. L2-L3: The disc is bulging. There is mild bilateral facet joint osteoarthritis. There is mild bilateral neural foraminal stenosis. There is no central canal stenosis. L3-L4: The disc is bulging. There is moderate bilateral facet joint osteoarthritis. There is mild bilateral neural foraminal stenosis. There is mild central canal stenosis. L4-L5: The disc is bulging. There is severe bilateral facet joint osteoarthritis. There is mild bilateral neural foraminal stenosis. There is mild central canal stenosis. L5-S1: The disc is bulging and has an annular fissure. There is severe bilateral facet joint osteoarthritis. There is mild bilateral neural foraminal stenosis. There is mild central canal stenosis. IMPRESSION: 1. Mild lumbar spondylosis. Reviewed, dictated and finalized at location E. HALMIC TECHNOLOGIST IMPRESSION: 1. Mild lumbar spondylosis.
--- NOTE | ~2025-11-10 | MR_ITS ---
EXAMINATION: MR hip RT wo con DATE: 11/10/2025 08:17 INDICATION: Right-sided sciatica and right hip pain TECHNIQUE: Magnetic resonance imaging (MRI) of the right hip was performed without intravenous contrast. Sequences included full-field axial PD-weighted FS FSE and T1-weighted FSE, coronal of the pelvis with PD-weighted FS FSE, T2- weighted FSE and T1-weighted FSE, small field of view of the right hip with axial PD-weighted FS FSE, sagittal PD-weighted FS FSE, coronal PD-weighted FS FSE and coronal T2 weighted FSE. Additional radial T1-weighted FGR oriented orthogonal to the acetabular rim were obtained for evaluation of the labrum. COMPARISON: None FINDINGS: Bones/labrum/cartilage: Alignment is normal. No fracture, avascular necrosis or pathologic marrow replacing process. Diffuse degenerative tearing of the right acetabular labrum with marginal osteophytes along the posterior superior right acetabulum extending into the labrum. There is moderate osteoarthritis at the right hip with subarticular edema-like signal change along the superior right acetabulum and 1.2 cm degenerative subarticular cyst at the anterosuperior right acetabulum. Additional small focus of mild subarticular edema-like signal change at the posterolateral the apex of the femoral head. Articular cartilage is normal. Fluid: There is a unilateral small likely reactive right hip joint effusion. Soft tissues: Normal and symmetric muscle bulk and signal in the pelvis and visualized proximal thighs. The bilateral iliopsoas and gluteal tendons are normal. Mild tendinopathy without discrete tear at the ischial tuberosity origin of the left proximal hamstring tendons. The proximal right hamstring tendons are normal. Small amount of likely physiologic free fluid in the cul-de-sac. Limited evaluation of visceral organs of the pelvis is unremarkable. No pathologically enlarged pelvic/inguinal lymphadenopathy. IMPRESSION: 1. Moderate right hip osteoarthritis with degenerative tearing of the right acetabular labrum and likely reactive small right hip joint effusion. 2. Mild tendinopathy without discrete tear at the proximal left hamstring tendons. Reviewed, dictated and finalized at location A. STANT AUDITOR IMPRESSION: 1. Moderate right hip osteoarthritis with degenerative tearing of the right johnny tabular labrum and likely reactive small right hip joint effusion. 2. Mild tendinopathy without discrete tear at the proximal left hamstring tendo ns.
== END 2025-11-10 07:27 | disposition home or self-care (01) ==
LOC: MICIMG 07:27
PROVIDERS: PCP Family Medicine; Visit Provider Family Medicine
DX: M54.31 Sciatica, right side (principal); M25.551 Pain in right hip
CPT/HCPCS: 72148; 73721